=== PATIENT | female | born 1985 | race Caucasian/White ===

== ENCOUNTER 2020-04-08 00:11 | Emergency (ER) | payer MEDICAID ==
[~2020-04-08] VITALS: Ht 157.5 cm; Wt 54.0 kg
[~2020-04-08 00:11] MED LIST: LOPE1TAB46 PO
[2020-04-08] MEDS ORDERED: dexamethasone sod phosphate 10mg/ml inj IV STA (01:08)
[2020-04-08] MEDS ORDERED: heparin 10,000 units/1 ML INJ IV ONE (01:10)
[2020-04-08] MEDS ORDERED: heparin 25,000 UNIT/250ml bag 250 ML IV ONE (01:10)
[2020-04-08] MEDS ORDERED: nitroGLYCERIN 1gm ointment UD TP ONE (01:10)
[2020-04-08] MEDS ORDERED: normal saline 1000ml 1,000 ML IVB ONE (01:24)
[2020-04-08 01:54] LABS: BASOPHILS # (AUTO) 0.1 X10'3 (0-0.2); BASOPHILS % (AUTO) 0.7 % (0-1); EOSINOPHILS # (AUTO) 0.1 X10'3 (0-0.9); EOSINOPHILS % (AUTO) 0.8 % (0-6); HEMATOCRIT 41.1 % (35.0-45.0); HEMOGLOBIN 13.9 g/dl (12.0-16.0); LYMPHOCYTES # (AUTO) 1.6 X10'3 (1.1-4.8); LYMPHOCYTES % (AUTO) 16.2 % (21-51); MEAN CORPUSCULAR HGB CONC 33.9 g/dL (33.0-36.5); MEAN CORPUSCULAR VOLUME 91.6 FL (78-98); MEAN PLATELET VOLUME 8.3 FL (7.4-10.4); MONOCYTES # (AUTO) 0.4 X10'3 (0-0.9); MONOCYTES % (AUTO) 4.1 % (2-12); NEUTROPHILS # (AUTO) 7.6 X10'3 (1.8-7.7); NEUTROPHILS % (AUTO) 78.2 % (42-75); PLATELET COUNT 252 X10'3 (140-440); RED BLOOD COUNT 4.48 X10'6 (4.20-5.60); RED CELL DISTRIBUTION WIDTH 13.3 % (11.5-14.5); WHITE BLOOD COUNT 9.7 X10'3 (4.5-11.0)
[2020-04-08 02:00] LABS: ALANINE AMINOTRANSFERASE 19 U/L (12-78); ALBUMIN 3.7 G/DL (3.4-5.0); ALBUMIN/GLOBULIN RATIO 1.1 (1.1-1.5); ALKALINE PHOSPHATASE 76 IU/L (46-116); ANION GAP 4 (8-16); ASPARTATE AMINO TRANSFERASE 17 U/L (10-37); BILIRUBIN,TOTAL 0.3 MG/DL (0.1-1.0); BLOOD UREA NITROGEN 15 MG/DL (7-18); BUN/CREATININE RATIO 15.6 (6.6-38.0); CALCIUM 8.8 MG/DL (8.5-10.1); CHLORIDE 102 MMOL/L (99-107); CREATININE 0.96 MG/DL (0.40-0.90); GLUCOSE 97 MG/DL (70-104); SODIUM 135 MMOL/L (135-145); TOTAL CARBON DIOXIDE 29.1 MMOL/L (24-32); TOTAL PROTEIN 7.1 G/DL (6.4-8.2); eGFR 66 ML/MIN
[2020-04-08] MEDS ORDERED: IBUP-1985 PO (05:49)
[2020-04-08 05:52] VITALS: BP 91/47
== END 2020-04-08 05:55 | disposition home or self-care (01) ==
LOC: ER 00:12
DX: M79.89 Other specified soft tissue disorders (principal); R20.0 Anesthesia of skin; F17.210 Nicotine dependence, cigarettes, uncomplicated; F12.90 Cannabis use, unspecified, uncomplicated; F11.90 Opioid use, unspecified, uncomplicated; Z85.41 Personal history of malignant neoplasm of cervix uteri; Z56.0 Unemployment, unspecified
CPT/HCPCS: 36415; 80053; 85025; 85610; 93931; 96365; 96366; 96375; 96376; 99284; J1100; J1644; J7030

== ENCOUNTER 2021-02-12 01:33 | Emergency (ER) | payer MEDICAID ==
[~2021-02-12] VITALS: Ht 157.5 cm; Wt 60.0 kg
[~2021-02-12 01:33] MED LIST changes: +IBUP-1985 PO
[2021-02-12 01:36] VITALS: BP 123/74
[2021-02-12] MEDS ORDERED: clindamycin 150mg capsule PO ONE (02:20)
[2021-02-12] MEDS ORDERED: ondansetron 4mg rapidly disintigrating tab PO ONE (02:20)
[2021-02-12] MEDS ORDERED: bacitracin 15gm ointment TP ONE (02:30)
[2021-02-12] MEDS ORDERED: CLIN150C8 PO (02:32)
[2021-02-12] MEDS ORDERED: IBUP-1984 PO (02:32)
[2021-02-12] MEDS ORDERED: acetaminophen 325mg tablet PO ONE (02:55)
[2021-02-12] MEDS ORDERED: LIDOcaine 1% W/epiNEPHrine 1:100,000 20ml vial ONE (08:00)
== END 2021-02-12 03:18 | disposition home or self-care (01) ==
LOC: ER 01:34
DX: L02.511 Cutaneous abscess of right hand (principal); F12.90 Cannabis use, unspecified, uncomplicated; F11.90 Opioid use, unspecified, uncomplicated; Z85.41 Personal history of malignant neoplasm of cervix uteri; Z56.0 Unemployment, unspecified; Z88.8 Allergy status to other drugs, medicaments and biological substances; Z79.2 Long term (current) use of antibiotics; Z79.899 Other long term (current) drug therapy
CPT/HCPCS: 10060; 99284

== ENCOUNTER 2021-09-21 04:11 | Emergency (ER) | payer MEDICAID ==
[~2021-09-21] VITALS: Ht 157.5 cm; Wt 59.1 kg
[~2021-09-21 04:11] MED LIST changes: +CLIN150C8 PO
[2021-09-21 05:17] VITALS: BP 123/64
[2021-09-21] MEDS ORDERED: LIDOcaine 1% W/epiNEPHrine 1:200,000 10ml vial IJ ONE (05:40)
[2021-09-21] MEDS ORDERED: morphine 2 MG/ML inj. syringe IV PRN (05:40)
[2021-09-21] MEDS ORDERED: normal saline 1000ML IV soln IVB ONE (05:40)
--- NOTE | 2021-09-21 05:44 | NUR ---
at bedside. pt left room and per md, pt went outside to smoke and stated morning dr will take over care when pt gets back to room.
[2021-09-21] MEDS ORDERED: LIDOcaine 1% W/epiNEPHrine 1:100,000 20ml vial IJ ONE (05:45)
[2021-09-21] MEDS ORDERED: NO HOME MEDS (12:33)
== END 2021-09-21 06:38 | disposition left against medical advice (07) ==
LOC: ER 04:11
DX: L02.31 Cutaneous abscess of buttock (principal); F12.90 Cannabis use, unspecified, uncomplicated; F11.90 Opioid use, unspecified, uncomplicated; Z56.0 Unemployment, unspecified; Z88.6 Allergy status to analgesic agent
CPT/HCPCS: 99281

== ENCOUNTER 2021-09-21 06:43 | Inpatient (IN) | payer MEDICAID ==
[~2021-09-21] VITALS: Ht 157.5 cm; Wt 62.0 kg
[2021-09-21] MEDS ORDERED: vancomycin/NS 1 GM ADD-VANTAGE 250 ML IV ONE (08:10)
[2021-09-21] MEDS ORDERED: piperacillin/tazo 3.375gm/50ml 50 ML IV ONE (08:10)
[2021-09-21 09:29] LABS: BASOPHILS # (AUTO) 0.1 X10'3 (0-0.2); BASOPHILS % (AUTO) 0.5 % (0-1); EOSINOPHILS # (AUTO) 0.1 X10'3 (0-0.9); EOSINOPHILS % (AUTO) 0.8 % (0-6); HEMATOCRIT 36.7 % (35.0-45.0); HEMOGLOBIN 12.5 g/dl (12.0-16.0); LYMPHOCYTES # (AUTO) 1.1 X10'3 (1.1-4.8); LYMPHOCYTES % (AUTO) 9.1 % (21-51); MEAN CORPUSCULAR HEMOGLOBIN 30.3 PG (27.0-31.0); MEAN PLATELET VOLUME 7.9 FL (7.4-10.4); MONOCYTES # (AUTO) 0.8 X10'3 (0-0.9); MONOCYTES % (AUTO) 6.5 % (2-12); NEUTROPHILS # (AUTO) 10.5 X10'3 (1.8-7.7); NEUTROPHILS % (AUTO) 83.1 % (42-75); PLATELET COUNT 283 X10'3 (140-440); RED BLOOD COUNT 4.12 X10'6 (4.20-5.60); RED CELL DISTRIBUTION WIDTH 13.4 % (11.5-14.5); WHITE BLOOD COUNT 12.6 X10'3 (4.5-11.0)
[2021-09-21 09:48] LABS: ALANINE AMINOTRANSFERASE 22 U/L (12-78); ALBUMIN 3.1 G/DL (3.4-5.0); ALBUMIN/GLOBULIN RATIO 0.8 (1.1-1.5); ALKALINE PHOSPHATASE 93 IU/L (46-116); ANION GAP 8 (8-16); ASPARTATE AMINO TRANSFERASE 18 U/L (10-37); BILIRUBIN,TOTAL 0.2 MG/DL (0.1-1.0); BLOOD UREA NITROGEN 7 MG/DL (7-18); CALCIUM 8.8 MG/DL (8.5-10.1); CHLORIDE 105 MMOL/L (99-107); GLUCOSE 91 MG/DL (70-104); MAGNESIUM 2.1 MG/DL (1.5-2.4); SODIUM 140 MMOL/L (135-145); TOTAL PROTEIN 6.9 G/DL (6.4-8.2); eGFR > 90 ML/MIN
[2021-09-21 10:16] LABS: PREOP HCG, QL SERUM NEGATIVE (NEGATIVE)
[2021-09-21] MEDS ORDERED: morphine 2 MG/ML inj. syringe IV ONE (11:00)
[2021-09-21] MEDS ORDERED: acetaminophen 325mg tablet PO PRN (12:20)
[2021-09-21] MEDS ORDERED: magnesium hydroxide 30ml (MOM) UD suspension PO PRN (12:20)
[2021-09-21] MEDS ORDERED: ondansetron/PF 4mg/2ml inj IV PRN (12:20)
[2021-09-21] MEDS ORDERED: mag hydrox/Alum hydrox/simeth 30ml oral suspension PO PRN (12:20)
[2021-09-21] MEDS ORDERED: HYDROcodone/acetaminophen 5mg/325mg tablet PO PRN (12:20)
[2021-09-21] MEDS: normal saline 1000ml 1,000 ML IV SCH ×2 (12:20→22:20)
[2021-09-21] MEDS ORDERED: NO HOME MEDS (12:33)
[2021-09-21] MEDS: HYDROcodone/acetaminophen 10/325mg tab PO PRN ×2 (16:27→23:18)
--- NOTE | 2021-09-21 17:37 | NUR ---
Patient arrived to the unit with no signs of distress, aaox4 . IV patent and flushible. Vitals wnl
[2021-09-21 17:43] VITALS: BP 110/56
[2021-09-21] MEDS: piperacillin/tazo 4.5gm/100ml 100 ML IV SCH (17:57)
[2021-09-21] MEDS: morphine 2 MG/ML inj. syringe IV PRN ×2 (19:34→22:58)
[2021-09-21] MEDS: docusate sod 100mg capsule PO SCH (19:34)
[2021-09-22] VITALS: BP 130/49
[2021-09-22] MEDS: piperacillin/tazo 4.5gm/100ml 100 ML IV SCH ×3 (01:03→16:49)
[2021-09-22] MEDS: morphine 2 MG/ML inj. syringe IV PRN (03:35)
[2021-09-22 04:48] VITALS: BP 109/52
[2021-09-22] MEDS: HYDROmorphone inj. 0.5 MG/0.5 ML DISP.SYRIN IV PRN ×2 (04:49→16:49)
[2021-09-22 06:43] LABS: EOSINOPHILS # (AUTO) 0.1 X10'3 (0-0.9); EOSINOPHILS % (AUTO) 0.7 % (0-6); LYMPHOCYTES # (AUTO) 1.3 X10'3 (1.1-4.8); MEAN CORPUSCULAR HGB CONC 33.8 g/dL (33.0-36.5); MEAN PLATELET VOLUME 7.9 FL (7.4-10.4); MONOCYTES # (AUTO) 0.5 X10'3 (0-0.9); RED CELL DISTRIBUTION WIDTH 13.4 % (11.5-14.5)
[2021-09-22 06:47] LABS: BASOPHILS % (AUTO) 0.4 % (0-1); HEMATOCRIT 37.4 % (35.0-45.0); HEMOGLOBIN 12.6 g/dl (12.0-16.0); LYMPHOCYTES % (AUTO) 14.9 % (21-51); MEAN CORPUSCULAR HEMOGLOBIN 30.3 PG (27.0-31.0); MEAN CORPUSCULAR VOLUME 89.7 FL (78-98); MONOCYTES % (AUTO) 5.5 % (2-12); NEUTROPHILS % (AUTO) 78.5 % (42-75); PLATELET COUNT 267 X10'3 (140-440); RED BLOOD COUNT 4.16 X10'6 (4.20-5.60); WHITE BLOOD COUNT 8.9 X10'3 (4.5-11.0)
[2021-09-22 06:59] LABS: ALBUMIN 3.2 G/DL (3.4-5.0); ANION GAP 10 (8-16); BLOOD UREA NITROGEN 8 MG/DL (7-18); BUN/CREATININE RATIO 7.8 (6.6-38.0); CALCIUM 8.8 MG/DL (8.5-10.1); CHLORIDE 105 MMOL/L (99-107); CREATININE 1.03 MG/DL (0.40-0.90); GLUCOSE 135 MG/DL (70-104); POTASSIUM 3.5 MMOL/L (3.5-5.1); SODIUM 141 MMOL/L (135-145); eGFR 60 ML/MIN
[2021-09-22 08:00] VITALS: BP 119/71
[2021-09-22] MEDS ORDERED: morphine 2 MG/ML inj. syringe IV ONE (08:05)
[2021-09-22] MEDS: normal saline 1000ml 1,000 ML IV SCH (08:07)
[2021-09-22] MEDS: docusate sod 100mg capsule PO SCH ×2 (08:23→19:43)
[2021-09-22] MEDS: enoxaparin 40mg/0.4ml syringe SUBCUT SCH (08:27)
[2021-09-22] MEDS: nicotine 21mg patch - 24 hr TD SCH (09:35)
[2021-09-22] MEDS: HYDROcodone/acetaminophen 10/325mg tab PO PRN ×2 (09:37→19:43)
[2021-09-22] MEDS ORDERED: LORazepam 0.5 MG tablet PO PRN (10:25)
[2021-09-22] MEDS: proCHLORperazine 10 MG/2 ml inj IV PRN (10:47)
[2021-09-22] MEDS: LORazepam 2 mg/ml vial IV PRN (10:48)
[2021-09-22] MEDS: vancomycin/NS 1 GM ADD-VANTAGE 250 ML IV SCH ×2 (10:48→21:00)
[2021-09-22 11:00] VITALS: BP 122/58
[2021-09-22] MEDS: lactobacillus rhamnosus 10,000 MMU CELLS/CAPSULE PO SCH (19:43)
[2021-09-22 20:00] VITALS: BP 126/61
[2021-09-23] VITALS: BP 113/64
[2021-09-23] MEDS: HYDROcodone/acetaminophen 10/325mg tab PO PRN ×3 (01:57→20:30)
[2021-09-23] MEDS: piperacillin/tazo 4.5gm/100ml 100 ML IV SCH ×3 (01:57→16:00)
[2021-09-23] MEDS: normal saline 1000ml 1,000 ML IV SCH ×4 (01:59→21:49)
[2021-09-23 05:53] LABS: BASOPHILS % (AUTO) 0.3 % (0-1); EOSINOPHILS # (AUTO) 0.1 X10'3 (0-0.9); EOSINOPHILS % (AUTO) 0.7 % (0-6); HEMOGLOBIN 12.3 g/dl (12.0-16.0); LYMPHOCYTES # (AUTO) 1.2 X10'3 (1.1-4.8); LYMPHOCYTES % (AUTO) 13.6 % (21-51); MEAN CORPUSCULAR HEMOGLOBIN 30.4 PG (27.0-31.0); MEAN CORPUSCULAR HGB CONC 34.2 g/dL (33.0-36.5); MEAN PLATELET VOLUME 8.5 FL (7.4-10.4); MONOCYTES # (AUTO) 0.5 X10'3 (0-0.9); MONOCYTES % (AUTO) 5.9 % (2-12); NEUTROPHILS % (AUTO) 79.5 % (42-75); PLATELET COUNT 263 X10'3 (140-440); RED BLOOD COUNT 4.05 X10'6 (4.20-5.60); RED CELL DISTRIBUTION WIDTH 13.5 % (11.5-14.5); WHITE BLOOD COUNT 8.9 X10'3 (4.5-11.0)
[2021-09-23 06:06] LABS: ALBUMIN 2.9 G/DL (3.4-5.0); ANION GAP 9 (8-16); BLOOD UREA NITROGEN 7 MG/DL (7-18); BUN/CREATININE RATIO 7.9 (6.6-38.0); CALCIUM 8.5 MG/DL (8.5-10.1); CHLORIDE 106 MMOL/L (99-107); CREATININE 0.89 MG/DL (0.40-0.90); GLUCOSE 94 MG/DL (70-104); POTASSIUM 3.2 MMOL/L (3.5-5.1); SODIUM 141 MMOL/L (135-145); TOTAL CARBON DIOXIDE 25.7 MMOL/L (24-32); eGFR 71 ML/MIN
[2021-09-23] MEDS: HYDROmorphone inj. 0.5 MG/0.5 ML DISP.SYRIN IV PRN (06:31)
[2021-09-23] MEDS: lactobacillus rhamnosus 10,000 MMU CELLS/CAPSULE PO SCH ×2 (07:44→20:29)
[2021-09-23] MEDS: docusate sod 100mg capsule PO SCH ×2 (07:44→20:30)
[2021-09-23] MEDS: LORazepam 2 mg/ml vial IV PRN ×2 (07:44→16:38)
[2021-09-23] MEDS: proCHLORperazine 10 MG/2 ml inj IV PRN ×2 (07:45→16:38)
[2021-09-23] MEDS: nicotine 21mg patch - 24 hr TD SCH (07:45)
[2021-09-23 08:00] VITALS: BP 116/57
[2021-09-23] MEDS: enoxaparin 40mg/0.4ml syringe SUBCUT SCH (08:00)
[2021-09-23] MEDS ORDERED: nicotine 21mg patch - 24 hr TD SCH (08:00)
[2021-09-23] MEDS: vancomycin/NS 1 GM ADD-VANTAGE 250 ML IV SCH ×2 (11:07→21:49)
[2021-09-23 12:00] VITALS: BP 111/67
[2021-09-23] MEDS ORDERED: magnesium Cl slow-release 64mg tablet PO PRN (12:25)
[2021-09-23] MEDS ORDERED: magnesium 4gm in 100ml NS 100 ML IV PRN (12:25)
[2021-09-23] MEDS ORDERED: potassium Cl 20 mEq SR tablet PO PRN (12:25)
[2021-09-23] MEDS ORDERED: potassium Cl 40MEQ/1/2NS 520ml 520 ML IV PRN (12:25)
[2021-09-23] MEDS: potassium Cl 20 mEq SR tablet PO PRN ×2 (13:47→20:40)
[2021-09-23 20:00] VITALS: BP 131/73
[2021-09-23] MEDS ORDERED: VANCOMYCIN LEVEL IV ONE (20:30)
[2021-09-23] MEDS: K and/or MAG REPLACEMENT MC SCH (20:41)
[2021-09-24] VITALS: BP 123/67
[2021-09-24] MEDS: piperacillin/tazo 4.5gm/100ml 100 ML IV SCH ×3 (00:34→16:06)
[2021-09-24] MEDS: HYDROcodone/acetaminophen 10/325mg tab PO PRN ×4 (05:03→17:40)
[2021-09-24 08:00] VITALS: BP 106/46
[2021-09-24] MEDS: K and/or MAG REPLACEMENT MC SCH (08:00)
[2021-09-24] MEDS: lactobacillus rhamnosus 10,000 MMU CELLS/CAPSULE PO SCH (08:18)
[2021-09-24] MEDS: nicotine 21mg patch - 24 hr TD SCH (08:18)
[2021-09-24] MEDS: docusate sod 100mg capsule PO SCH (08:18)
[2021-09-24 08:22] LABS: ALBUMIN 2.7 G/DL (3.4-5.0); ANION GAP 11 (8-16); BLOOD UREA NITROGEN 8 MG/DL (7-18); BUN/CREATININE RATIO 10.4 (6.6-38.0); CALCIUM 8.1 MG/DL (8.5-10.1); CHLORIDE 108 MMOL/L (99-107); CREATININE 0.77 MG/DL (0.40-0.90); GLUCOSE 113 MG/DL (70-104); POTASSIUM 3.9 MMOL/L (3.5-5.1); SODIUM 141 MMOL/L (135-145); TOTAL CARBON DIOXIDE 21.9 MMOL/L (24-32); eGFR 84 ML/MIN
[2021-09-24 08:46] LABS: BASOPHILS # (AUTO) 0.1 X10'3 (0-0.2); BASOPHILS % (AUTO) 0.9 % (0-1); EOSINOPHILS % (AUTO) 0.4 % (0-6); HEMATOCRIT 33.9 % (35.0-45.0); HEMOGLOBIN 11.8 g/dl (12.0-16.0); LYMPHOCYTES # (AUTO) 1.7 X10'3 (1.1-4.8); LYMPHOCYTES % (AUTO) 18.2 % (21-51); MEAN CORPUSCULAR HEMOGLOBIN 30.5 PG (27.0-31.0); MEAN CORPUSCULAR HGB CONC 34.7 g/dL (33.0-36.5); MEAN CORPUSCULAR VOLUME 87.9 FL (78-98); MEAN PLATELET VOLUME 7.7 FL (7.4-10.4); MONOCYTES # (AUTO) 0.5 X10'3 (0-0.9); MONOCYTES % (AUTO) 5.8 % (2-12); NEUTROPHILS # (AUTO) 6.8 X10'3 (1.8-7.7); NEUTROPHILS % (AUTO) 74.7 % (42-75); PLATELET COUNT 256 X10'3 (140-440); RED BLOOD COUNT 3.86 X10'6 (4.20-5.60); RED CELL DISTRIBUTION WIDTH 12.9 % (11.5-14.5); WHITE BLOOD COUNT 9.2 X10'3 (4.5-11.0)
[2021-09-24] MEDS ORDERED: VANCOmycin 1250MG/NS 250ml Bag 250 ML IV SCH (09:00)
[2021-09-24] MEDS: enoxaparin 40mg/0.4ml syringe SUBCUT SCH (09:06)
[2021-09-24] MEDS: normal saline 1000ml 1,000 ML IV SCH (09:39)
--- NOTE | 2021-09-24 10:26 | NUR ---
Met with patient in regards to substance use and to see if patient is interested in resources for treatment options. Patient is interested in inpatient rehab. I gave patient [facility] number to start process. Patient said that she has contacted [facility] in the past and felt that they were very rude and didn't want to help her. I recommended her being transferred to someone else if that happens again. I also gave her numbers for a couple other inpatient rehabs to call. Patient has my card and I told her to call me with any questions if needed.
[2021-09-24 11:00] VITALS: BP 143/66
--- NOTE | 2021-09-24 19:10 | NUR ---
Message: [facility] [id number] Re: [id number] [facility]TER IV went bad patient refuses new IV can she be changed to PO tonight? Please call Custom Responses: promotional table spacer Transaction number: [id number] Addendum: 09/24/21 at 1911 by Aixa Ariza RN Per Dr Cantrell patient needs IV until tomorrow antibiotics
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
[2021-09-25] MEDS ORDERED: VANCOMYCIN LEVEL IV ONE (20:30)
== END 2021-09-24 19:25 | disposition left against medical advice (07) | DRG 383 ==
LOC: ER 06:43 → ED HOLD 12:21 → SUR 3N 16:56
PROVIDERS: ADMIT Family Medicine; ATTEND Family Medicine
DX: L03.317 Cellulitis of buttock (principal); E87.6 Hypokalemia; L02.31 Cutaneous abscess of buttock; F11.90 Opioid use, unspecified, uncomplicated; R11.0 Nausea; Z20.822 Contact with and (suspected) exposure to COVID-19; Z53.29 Procedure and treatment not carried out because of patient's decision for other reasons; F41.9 Anxiety disorder, unspecified; F17.210 Nicotine dependence, cigarettes, uncomplicated; Z85.41 Personal history of malignant neoplasm of cervix uteri; Z56.0 Unemployment, unspecified; Z88.8 Allergy status to other drugs, medicaments and biological substances; Z79.899 Other long term (current) drug therapy; Z71.6 Tobacco abuse counseling
CPT/HCPCS: 36415; 72192; 80048; 80053; 80202; 83605; 83735; 84145; 84703; 85025; 87040; 87081; 87635; 96365; 96366; 96368; 96375; 99285; C9803; G0378; J0780; J1170; J1650; J2060; J2270; J2405; J2543; J3370; J7030

== ENCOUNTER 2024-08-21 20:07 | Emergency (ER) | payer MEDICAID ==
[~2024-08-21] VITALS: Ht 157.5 cm; Wt 60.0 kg
[~2024-08-21 20:07] MED LIST changes: -CLIN150C8 PO; -IBUP-1985 PO; -LOPE1TAB46 PO; +NO HOME MEDS
[2024-08-21 20:30] VITALS: BP 164/84; PULSE 93; RESP 16; O2SAT 100
[2024-08-21] MEDS ORDERED: IBUP-1984 PO (21:19)
[2024-08-21] MEDS ORDERED: AMOX-580 PO (21:19)
[2024-08-21] MEDS: amox tr/potassium clavulanate 875/125mg TAB PO ONE (21:40)
[2024-08-21] MEDS: TETanus/Pertussis (Acell)/Diphther VAC/PF (Tdap-Adult) 0.5ml syringe IMVAC ONE (21:40)
[2024-08-21] MEDS: acetaminophen 325mg tablet PO ONE (21:40)
[2024-08-21] MEDS: ibuprofen tablet 400 MG TABLET PO ONE (21:40)
[2024-08-21 21:49] VITALS: TEMP 97.5
== END 2024-08-21 21:51 | disposition home or self-care (01) ==
LOC: ER 20:07
DX: S81.832A Puncture wound without foreign body, left lower leg, initial encounter (principal); F12.90 Cannabis use, unspecified, uncomplicated; Z88.6 Allergy status to analgesic agent; Z79.899 Other long term (current) drug therapy; Z79.2 Long term (current) use of antibiotics; Z85.41 Personal history of malignant neoplasm of cervix uteri; W54.0XXA Bitten by dog, initial encounter; Y93.89 Activity, other specified; Y92.89 Other specified places as the place of occurrence of the external cause; Y99.8 Other external cause status
CPT/HCPCS: 73590; 90471; 90715; 99284; J7030; A6449